=== PATIENT | female | born 1935 | race Caucasian/White ===

== ENCOUNTER 2023-06-02 12:38 | Inpatient (IN) ==
[2023-06-02] MEDS ORDERED: IOPAMIDOL 100 ML BOTTLE IV ONE (12:39)
[2023-06-02 13:15] LABS: POC Calcium, Ionized 1.12 (1.16-1.32); POC Creatinine 0.6 (0.6-1.2); POC Potassium 4.2 (3.3-5.1)
[2023-06-02 13:48] LABS: Basophils # (Auto) 0.03 K/mcL (0.00-0.30); Basophils % (Auto) 0.2 % (0.0-2.0); Eosinophils # (Auto) 0.05 K/mcL (0.00-0.70); Eosinophils % (Auto) 0.3 % (0.0-7.0); Hematocrit 35.3 % (34.1-44.9); Hemoglobin 11.4 g/dL (11.2-15.7); Lymphocytes # (Auto) 1.48 K/mcL (1.50-4.80); Lymphocytes % (Auto) 9.8 % (15.5-49.0); Mean Cell Volume 91.5 fL (80.0-100.0); Mean Corpuscular HGB Conc 32.3 g/dL (31.0-36.0); Mean Platelet Volume 9.3 fL (8.8-12.5); Monocytes # (Auto) 1.01 K/mcL (0.10-0.90); Monocytes % (Auto) 6.7 % (1.0-12.0); Neutrophils % (Auto) 81.7 % (38.0-78.0); Platelet Count 603 K/mcL (140-440); RBC 3.86 M/mcL (3.59-5.38); Red Cell Distribution Width 15.3 % (11.5-14.5); WBC 15.1 K/mcL (4.5-11.0)
[2023-06-02] MEDS ORDERED: CIPROFLOXACIN 400 MG/200 ML BAG IV ONE (14:17)
[2023-06-02 14:26] LABS: ALT/SGPT 25 U/L (<40); AST/SGOT 26 U/L (<32); Albumin 2.5 gm/dL (3.2-5.2); Alkaline Phosphatase 196 U/L (39-117); Bilirubin,Direct < 0.2 mg/dL (0-0.3); Bilirubin,Total 0.5 mg/dL (0.1-1.0)
[2023-06-02 17:22] LABS: Appearance,Urine CLOUDY (Clear); Bilirubin,Urine Negative (Negative); Color,Urine YELLOW; Culture Indicated,Urine Yes; Glucose,Urine (UA) Negative (Negative); Ketones,Urine Negative (Negative); Leukocyte Esterase,Urine 500 /uL (Negative); Mucus,Urine FEW /hpf; Nitrate,Urine POS (Negative); Protein,Urine 30 mg/dL (Negative); Specific Gravity,Urine 1.017 (1.000-1.035); Urine Blood 0.03 mg/dL (Negative); Urine RBC 30 /hpf (0-3); Urine Squamous Epithelial Cell 0 /hpf (0-4); Urine WBC > 182 /hpf (0-4); Urobilinogen,Urine Negative
[2023-06-02] MEDS ORDERED: ONDANSETRON 4 MG/2 ML VIAL IV PRN ×2 (19:46→20:59)
[2023-06-02] MEDS ORDERED: IPRATROPIUM/ALBUTEROL 3 ML AMPUL.NEB NEB PRN (20:59)
[2023-06-02] MEDS ORDERED: LACTULOSE 20 GM/30 ML ORAL.SOL PO PRN (20:59)
[2023-06-02] MEDS ORDERED: POTASSIUM CHLORIDE 20 MEQ TABLET PO PRN ×2 (20:59)
[2023-06-02] MEDS ORDERED: POTASSIUM CHLORIDE 40 MEQ in DEXTROSE 5% IN WATER 500 ML IV PRN (20:59)
[2023-06-02] MEDS ORDERED: MAGNESIUM SULFATE 2 GM/50 ML BAG IV PRN (20:59)
[2023-06-02] MEDS ORDERED: SENNOSIDES 1 TABLET PO PRN (20:59)
[2023-06-02] MEDS ORDERED: OSELTAMIVIR PHOSPHATE 75 MG CAPSULE PO SCH (21:00)
[2023-06-02] MEDS ORDERED: DOCUSATE SODIUM 100 MG CAPSULE PO SCH (21:00)
[2023-06-02] MEDS ORDERED: 0.9 % SODIUM CHLORIDE 1,000 ML IV SCH (21:00)
[2023-06-02 21:47] LABS: Thyroid Stimulating Hormone 4.51 uIU/mL (0.27-5.01)
[2023-06-02] MEDS ORDERED: 0.9 % SODIUM CHLORIDE 10 ML SYRINGE IV SCH (22:00)
[2023-06-02] MEDS: 0.9 % SODIUM CHLORIDE 10 ML SYRINGE IV SCH (22:17)
[2023-06-02] MEDS: ACETAMINOPHEN 325 MG TABLET PO PRN (22:44)
[2023-06-02] MEDS: SENNOSIDES 1 TABLET PO SCH (22:44)
[2023-06-02] MEDS: DOCUSATE SODIUM 100 MG CAPSULE PO SCH (22:44)
[2023-06-02] MEDS: LEVOFLOXACIN 750 MG/150 ML BAG IV SCH (23:07)
[2023-06-03] MEDS: 0.9 % SODIUM CHLORIDE 10 ML SYRINGE IV SCH ×3 (04:23→20:18)
[2023-06-03] MEDS: ACETAMINOPHEN 325 MG TABLET PO PRN ×3 (04:47→23:19)
[2023-06-03] MEDS: POLYETHYLENE GLYCOL 3350 17 GM PACKET PO PRN (04:48)
[2023-06-03 06:46] LABS: Basophils # (Auto) 0.03 K/mcL (0.00-0.30); Basophils % (Auto) 0.2 % (0.0-2.0); Eosinophils # (Auto) 0.04 K/mcL (0.00-0.70); Eosinophils % (Auto) 0.3 % (0.0-7.0); Hematocrit 32.9 % (34.1-44.9); Hemoglobin 10.5 g/dL (11.2-15.7); Lymphocytes # (Auto) 1.21 K/mcL (1.50-4.80); Mean Cell Volume 90.9 fL (80.0-100.0); Mean Corpuscular HGB Conc 31.9 g/dL (31.0-36.0); Mean Platelet Volume 9.3 fL (8.8-12.5); Monocytes # (Auto) 0.86 K/mcL (0.10-0.90); Monocytes % (Auto) 5.7 % (1.0-12.0); Neutrophils % (Auto) 84.4 % (38.0-78.0); Platelet Count 555 K/mcL (140-440); RBC 3.62 M/mcL (3.59-5.38); Red Cell Distribution Width 15.2 % (11.5-14.5); WBC 15.2 K/mcL (4.5-11.0)
[2023-06-03 07:47] LABS: ALT/SGPT 17 U/L (<40); AST/SGOT 14 U/L (<32); Albumin 2.1 gm/dL (3.2-5.2); Albumin/Globulin Ratio 0.6 (1.0-2.3); Alkaline Phosphatase 157 U/L (39-117); Bilirubin,Direct < 0.2 mg/dL (0-0.3); Bilirubin,Total 0.4 mg/dL (0.1-1.0); Blood Urea Nitrogen 12 mg/dL (8-23); Calcium 8.2 mg/dL (8.6-10.4); Carbon Dioxide 21 mmol/L (22-30); Chloride 100 mmol/L (96-108); Globulin 3.6 gm/dL (2.2-3.7); Glomerular Filtration Rate 82; Glucose 93 mg/dL (70-105); Lactate Dehydrogenase 147 U/L (135-225); Phosphorous 2.7 mg/dL (2.5-4.5); Triglycerides 69 mg/dL (<150); Uric Acid 3.1 mg/dL (2.5-8.0)
[2023-06-03] MEDS ORDERED: LEVOTHYROXINE SODIUM 175 MCG TABLET PO SCH (09:00)
[2023-06-03] MEDS ORDERED: SENNOSIDES 1 TABLET PO SCH (09:00)
[2023-06-03 09:49] LABS: Anisocytosis 1+ (None Seen); Lymphocytes % 11 % (15-49); Monocytes % (Manual) 4 % (1-12); Platelet Estimate INCREASED (Normal); RBC Morphology ABNORMAL (Normal); Reactive Lymphocytes 2 % (0-2); Segmented Neutrophils % 83 % (38-78)
[2023-06-03] MEDS: LEVOTHYROXINE 75 MCG TABLET PO SCH (10:25)
[2023-06-03] MEDS: LEVOTHYROXINE 100 MCG TABLET PO SCH (10:25)
[2023-06-03] MEDS: DOCUSATE SODIUM 100 MG CAPSULE PO SCH ×2 (10:25→20:18)
[2023-06-03] MEDS: POLYETHYLENE GLYCOL 3350 17 GM PACKET PO SCH (10:26)
[2023-06-03] MEDS: SODIUM CHLORIDE 1 GM TABLET PO SCH ×3 (10:26→20:18)
[2023-06-03] MEDS: LEVOFLOXACIN 750 MG/150 ML BAG IV SCH (10:31)
[2023-06-03] MEDS: ENOXAPARIN 40 MG/0.4 ML SYRINGE SQ SCH (10:31)
[2023-06-03] MEDS: SENNOSIDES 1 TABLET PO SCH (20:18)
[2023-06-04] MEDS: 0.9 % SODIUM CHLORIDE 10 ML SYRINGE IV SCH ×3 (04:41→21:12)
[2023-06-04] MEDS: POLYETHYLENE GLYCOL 3350 17 GM PACKET PO PRN (05:24)
[2023-06-04] MEDS: ACETAMINOPHEN 325 MG TABLET PO PRN ×2 (05:24→13:34)
[2023-06-04 07:29] LABS: Basophils # (Auto) 0.03 K/mcL (0.00-0.30); Basophils % (Auto) 0.2 % (0.0-2.0); Eosinophils # (Auto) 0.06 K/mcL (0.00-0.70); Eosinophils % (Auto) 0.4 % (0.0-7.0); Hematocrit 33.2 % (34.1-44.9); Hemoglobin 10.9 g/dL (11.2-15.7); Lymphocytes # (Auto) 1.48 K/mcL (1.50-4.80); Lymphocytes % (Auto) 10.4 % (15.5-49.0); Mean Cell Volume 88.5 fL (80.0-100.0); Mean Corpuscular HGB Conc 32.8 g/dL (31.0-36.0); Mean Platelet Volume 9.6 fL (8.8-12.5); Monocytes # (Auto) 0.83 K/mcL (0.10-0.90); Monocytes % (Auto) 5.8 % (1.0-12.0); Neutrophils % (Auto) 81.7 % (38.0-78.0); Platelet Count 602 K/mcL (140-440); RBC 3.75 M/mcL (3.59-5.38); Red Cell Distribution Width 15.1 % (11.5-14.5); WBC 14.3 K/mcL (4.5-11.0)
[2023-06-04] MEDS: LEVOTHYROXINE 75 MCG TABLET PO SCH (07:49)
[2023-06-04] MEDS: DOCUSATE SODIUM 100 MG CAPSULE PO SCH ×2 (07:49→21:12)
[2023-06-04] MEDS: LEVOTHYROXINE 100 MCG TABLET PO SCH (07:49)
[2023-06-04 07:50] LABS: ALT/SGPT 23 U/L (<40); AST/SGOT 28 U/L (<32); Albumin 2.1 gm/dL (3.2-5.2); Albumin/Globulin Ratio 0.6 (1.0-2.3); Alkaline Phosphatase 179 U/L (39-117); Bilirubin,Direct < 0.2 mg/dL (0-0.3); Bilirubin,Total 0.4 mg/dL (0.1-1.0); Blood Urea Nitrogen 9 mg/dL (8-23); Calcium 8.2 mg/dL (8.6-10.4); Carbon Dioxide 20 mmol/L (22-30); Chloride 100 mmol/L (96-108); Globulin 3.8 gm/dL (2.2-3.7); Glomerular Filtration Rate 82; Glucose 92 mg/dL (70-105); Lactate Dehydrogenase 163 U/L (135-225); Phosphorous 2.5 mg/dL (2.5-4.5); Triglycerides 71 mg/dL (<150); Uric Acid 2.9 mg/dL (2.5-8.0)
[2023-06-04] MEDS: POLYETHYLENE GLYCOL 3350 17 GM PACKET PO SCH (07:50)
[2023-06-04] MEDS: ENOXAPARIN 40 MG/0.4 ML SYRINGE SQ SCH (07:50)
[2023-06-04] MEDS ORDERED: SODIUM BICARBONATE 650 MG TABLET PO SCH (08:15)
[2023-06-04] MEDS: LEVOFLOXACIN 750 MG/150 ML BAG IV SCH (09:06)
[2023-06-04] MEDS: CARBOXYMETHYLCELLULOSE SODIUM 1 EACH DROPER.GEL OP PRN (13:29)
[2023-06-04] MEDS: SENNOSIDES 1 TABLET PO SCH (21:12)
[2023-06-05] MEDS: 0.9 % SODIUM CHLORIDE 10 ML SYRINGE IV SCH ×3 (05:02→20:49)
[2023-06-05 06:53] LABS: Basophils # (Auto) 0.04 K/mcL (0.00-0.30); Basophils % (Auto) 0.3 % (0.0-2.0); Eosinophils # (Auto) 0.01 K/mcL (0.00-0.70); Eosinophils % (Auto) 0.1 % (0.0-7.0); Hemoglobin 10.4 g/dL (11.2-15.7); Lymphocytes # (Auto) 1.55 K/mcL (1.50-4.80); Lymphocytes % (Auto) 11.4 % (15.5-49.0); Mean Cell Volume 89.4 fL (80.0-100.0); Mean Corpuscular HGB Conc 32.5 g/dL (31.0-36.0); Mean Platelet Volume 9.5 fL (8.8-12.5); Monocytes # (Auto) 0.82 K/mcL (0.10-0.90); Monocytes % (Auto) 6.1 % (1.0-12.0); Neutrophils % (Auto) 80.5 % (38.0-78.0); Platelet Count 594 K/mcL (140-440); RBC 3.58 M/mcL (3.59-5.38); Red Cell Distribution Width 15.4 % (11.5-14.5); WBC 13.5 K/mcL (4.5-11.0)
[2023-06-05 07:15] LABS: ALT/SGPT 18 U/L (<40); AST/SGOT 21 U/L (<32); Albumin 2.2 gm/dL (3.2-5.2); Albumin/Globulin Ratio 0.6 (1.0-2.3); Alkaline Phosphatase 199 U/L (39-117); Bilirubin,Direct < 0.2 mg/dL (0-0.3); Bilirubin,Total 0.5 mg/dL (0.1-1.0); Blood Urea Nitrogen 13 mg/dL (8-23); Calcium 8.3 mg/dL (8.6-10.4); Carbon Dioxide 21 mmol/L (22-30); Chloride 103 mmol/L (96-108); Globulin 3.5 gm/dL (2.2-3.7); Glomerular Filtration Rate 78; Glucose 107 mg/dL (70-105); Lactate Dehydrogenase 142 U/L (135-225); Phosphorous 2.3 mg/dL (2.5-4.5); Triglycerides 79 mg/dL (<150); Uric Acid 3.3 mg/dL (2.5-8.0)
[2023-06-05] MEDS: CARBOXYMETHYLCELLULOSE SODIUM 1 EACH DROPER.GEL OP PRN (07:37)
[2023-06-05] MEDS: ACETAMINOPHEN 325 MG TABLET PO PRN ×2 (07:38→20:55)
[2023-06-05] MEDS: LEVOTHYROXINE 75 MCG TABLET PO SCH (07:38)
[2023-06-05] MEDS: LEVOTHYROXINE 100 MCG TABLET PO SCH (07:38)
[2023-06-05] MEDS: LEVOFLOXACIN 750 MG/150 ML BAG IV SCH (09:52)
[2023-06-05] MEDS: DOCUSATE SODIUM 100 MG CAPSULE PO SCH ×2 (09:52→20:53)
[2023-06-05] MEDS: ENOXAPARIN 40 MG/0.4 ML SYRINGE SQ SCH (09:52)
[2023-06-05] MEDS: POLYETHYLENE GLYCOL 3350 17 GM PACKET PO SCH (09:53)
[2023-06-05] MEDS: ERYTHROMYCIN OPHTH OINT 3.5GM TUBE OS SCH ×4 (11:30→20:53)
[2023-06-05] MEDS: SENNOSIDES 1 TABLET PO SCH (20:53)
[2023-06-06] MEDS: 0.9 % SODIUM CHLORIDE 10 ML SYRINGE IV SCH ×3 (05:30→20:29)
[2023-06-06] MEDS: ACETAMINOPHEN 325 MG TABLET PO PRN ×3 (05:30→20:28)
[2023-06-06] MEDS: LEVOTHYROXINE 100 MCG TABLET PO SCH (07:52)
[2023-06-06] MEDS: LEVOTHYROXINE 75 MCG TABLET PO SCH (07:52)
[2023-06-06] MEDS: DOCUSATE SODIUM 100 MG CAPSULE PO SCH ×2 (10:09→20:28)
[2023-06-06] MEDS: ENOXAPARIN 40 MG/0.4 ML SYRINGE SQ SCH (10:09)
[2023-06-06] MEDS: ERYTHROMYCIN OPHTH OINT 3.5GM TUBE OS SCH ×4 (10:09→20:28)
[2023-06-06] MEDS: POLYETHYLENE GLYCOL 3350 17 GM PACKET PO SCH (10:09)
[2023-06-06] MEDS: LEVOFLOXACIN 750 MG/150 ML BAG IV SCH (10:10)
[2023-06-06 11:35] LABS: Basophils # (Auto) 0.05 K/mcL (0.00-0.30); Basophils % (Auto) 0.4 % (0.0-2.0); Eosinophils # (Auto) 0.04 K/mcL (0.00-0.70); Eosinophils % (Auto) 0.3 % (0.0-7.0); Hematocrit 32.5 % (34.1-44.9); Hemoglobin 10.6 g/dL (11.2-15.7); Lymphocytes # (Auto) 1.22 K/mcL (1.50-4.80); Lymphocytes % (Auto) 9.6 % (15.5-49.0); Mean Cell Volume 89.5 fL (80.0-100.0); Mean Corpuscular HGB Conc 32.6 g/dL (31.0-36.0); Mean Platelet Volume 9.4 fL (8.8-12.5); Monocytes # (Auto) 0.77 K/mcL (0.10-0.90); Neutrophils % (Auto) 81.7 % (38.0-78.0); Platelet Count 555 K/mcL (140-440); RBC 3.63 M/mcL (3.59-5.38); Red Cell Distribution Width 15.5 % (11.5-14.5); WBC 12.8 K/mcL (4.5-11.0)
[2023-06-06 12:17] LABS: Blood Urea Nitrogen 12 mg/dL (8-23); Calcium 8.3 mg/dL (8.6-10.4); Carbon Dioxide 23 mmol/L (22-30); Chloride 102 mmol/L (96-108); Glomerular Filtration Rate 78; Glucose 158 mg/dL (70-105); Phosphorous 2.6 mg/dL (2.5-4.5)
[2023-06-06 14:06] LABS: Appearance,Urine CLEAR (Clear); Bilirubin,Urine Negative (Negative); Color,Urine YELLOW; Culture Indicated,Urine Yes; Glucose,Urine (UA) Negative (Negative); Ketones,Urine Negative (Negative); Leukocyte Esterase,Urine Negative /uL (Negative); Mucus,Urine FEW /hpf; Nitrate,Urine Negative (Negative); Protein,Urine Negative (Negative); Specific Gravity,Urine 1.011 (1.000-1.035); Urine Blood Negative (Negative); Urine RBC 9 /hpf (0-3); Urine Squamous Epithelial Cell 0 /hpf (0-4); Urine WBC 19 /hpf (0-4); Urobilinogen,Urine Negative
[2023-06-06] MEDS: SENNOSIDES 1 TABLET PO SCH (20:28)
[2023-06-07] MEDS: ACETAMINOPHEN 325 MG TABLET PO PRN (03:32)
[2023-06-07] MEDS: 0.9 % SODIUM CHLORIDE 10 ML SYRINGE IV SCH (05:29)
[2023-06-07] MEDS: LEVOTHYROXINE 75 MCG TABLET PO SCH (08:03)
[2023-06-07] MEDS: LEVOTHYROXINE 100 MCG TABLET PO SCH (08:03)
[2023-06-07] MEDS: POLYETHYLENE GLYCOL 3350 17 GM PACKET PO SCH (08:24)
[2023-06-07] MEDS: DOCUSATE SODIUM 100 MG CAPSULE PO SCH (08:24)
[2023-06-07] MEDS: ENOXAPARIN 40 MG/0.4 ML SYRINGE SQ SCH (08:24)
[2023-06-07] MEDS: ERYTHROMYCIN OPHTH OINT 3.5GM TUBE OS SCH (08:31)
== END 2023-06-07 12:42 ==
LOC: MEDSUR 12:38 → ED 12:38 → MEDSUR 21:13
PROVIDERS: ADMIT Internal Medicine; ATTEND Internal Medicine

== ENCOUNTER 2023-07-03 09:20 | Inpatient (IN) ==
[2023-07-03] MEDS ORDERED: 0.9 % SODIUM CHLORIDE 1,000 ML IV SCH ×2 (09:30→15:53)
[2023-07-03] MEDS ORDERED: cefTRIAXone 1 GM VIAL IV ONE (09:46)
[2023-07-03 10:23] LABS: Basophils # (Auto) 0 K/mcL (0.00-0.30); Basophils % (Auto) 0 % (0.0-2.0); Eosinophils # (Auto) 0.01 K/mcL (0.00-0.70); Eosinophils % (Auto) 0.1 % (0.0-7.0); Hematocrit 37.1 % (34.1-44.9); Hemoglobin 11.7 g/dL (11.2-15.7); Lymphocytes # (Auto) 2.26 K/mcL (1.50-4.80); Lymphocytes % (Auto) 12.9 % (15.5-49.0); Mean Corpuscular HGB Conc 31.5 g/dL (31.0-36.0); Mean Platelet Volume 9.9 fL (8.8-12.5); Monocytes # (Auto) 0.97 K/mcL (0.10-0.90); Monocytes % (Auto) 5.5 % (1.0-12.0); Neutrophils % (Auto) 80.5 % (38.0-78.0); Platelet Count 524 K/mcL (140-440); RBC 4.12 M/mcL (3.59-5.38); Red Cell Distribution Width 15.7 % (11.5-14.5); WBC 17.6 K/mcL (4.5-11.0)
[2023-07-03 10:34] LABS: Appearance,Urine Cloudy (Clear); Bacteria,Urine Many /hpf ({null, 0}); Bilirubin,Urine Negative (Negative); Calcium Oxalate Crystals,Urine Few /hpf; Color,Urine Yellow; Culture Indicated,Urine Yes; Glucose,Urine (UA) Negative (Negative); Ketones,Urine Negative (Negative); Leukocyte Esterase,Urine Large /uL (Negative); Mucus,Urine Few /hpf; Nitrate,Urine Positive (Negative); PH,Urine 6.5 (5.0-9.0); Protein,Urine 30 mg/dL (Negative); Specific Gravity,Urine 1.015 (1.000-1.035); Urine Blood 1+(SmallL) ery/mcL (Negative); Urine RBC 3 /hpf (0-3); Urine Squamous Epithelial Cell 3 /hpf (0-4); Urine Transitional Epi Cells 3 /hpf (0-2); Urine WBC > 182 /hpf (0-4)
[2023-07-03 10:59] LABS: ALT/SGPT 42 U/L (<40); AST/SGOT 56 U/L (<32); Albumin 2.5 gm/dL (3.2-5.2); Albumin/Globulin Ratio 0.5 (1.0-2.3); Alkaline Phosphatase 578 U/L (39-117); Bilirubin,Total 1.1 mg/dL (0.1-1.0); Blood Urea Nitrogen 19 mg/dL (8-23); Calcium 9.2 mg/dL (8.6-10.4); Carbon Dioxide 34 mmol/L (22-30); Chloride 91 mmol/L (96-108); Globulin 4.7 gm/dL (2.2-3.7); Glomerular Filtration Rate 82; Glucose 107 mg/dL (70-105)
[2023-07-03] MEDS ORDERED: POTASSIUM CHLORIDE 20 MEQ in DEXTROSE 5% IN WATER 250 ML IV ONE (11:29)
[2023-07-03] MEDS ORDERED: POTASSIUM CHLORIDE 40 MEQ in DEXTROSE 5% IN WATER 500 ML IV ONE (15:53)
[2023-07-03] MEDS ORDERED: IPRATROPIUM/ALBUTEROL 3 ML AMPUL.NEB NEB PRN (15:53)
[2023-07-03] MEDS ORDERED: POTASSIUM CHLORIDE 20 MEQ TABLET PO PRN ×2 (15:53)
[2023-07-03] MEDS ORDERED: POTASSIUM CHLORIDE 20 MEQ TABLET PO ONE (15:53)
[2023-07-03] MEDS ORDERED: SENNOSIDES 1 TABLET PO PRN (15:53)
[2023-07-03] MEDS ORDERED: POLYETHYLENE GLYCOL 3350 17 GM PACKET PO PRN (15:53)
[2023-07-03] MEDS ORDERED: MAGNESIUM SULFATE 2 GM/50 ML BAG IV PRN (15:53)
[2023-07-03] MEDS ORDERED: ONDANSETRON 4 MG/2 ML VIAL IV PRN (15:53)
[2023-07-03] MEDS ORDERED: POTASSIUM CHLORIDE 40 MEQ in DEXTROSE 5% IN WATER 500 ML IV PRN (15:53)
[2023-07-03] MEDS: LEVOFLOXACIN 750 MG/150 ML BAG IV SCH (17:22)
[2023-07-03] MEDS: 0.9 % SODIUM CHLORIDE 10 ML SYRINGE IV SCH (19:10)
[2023-07-03] MEDS: DOCUSATE SODIUM 100 MG CAPSULE PO SCH (20:12)
[2023-07-03] MEDS: prednisoLONE 1% OPHTH DROPS 1ML BOTTLE OD SCH ×2 (20:13→21:04)
[2023-07-03] MEDS: ACETAMINOPHEN 325 MG TABLET PO PRN (20:15)
[2023-07-04] MEDS: 0.9 % SODIUM CHLORIDE 10 ML SYRINGE IV SCH ×3 (05:54→20:15)
[2023-07-04 06:23] LABS: Hematocrit 34.7 % (34.1-44.9); Hemoglobin 10.9 g/dL (11.2-15.7); Mean Cell Volume 89.7 fL (80.0-100.0); Mean Corpuscular HGB Conc 31.4 g/dL (31.0-36.0); Platelet Count 519 K/mcL (140-440); RBC 3.87 M/mcL (3.59-5.38); Red Cell Distribution Width 15.5 % (11.5-14.5); WBC 16.5 K/mcL (4.5-11.0)
[2023-07-04 06:59] LABS: ALT/SGPT 100 U/L (<40); AST/SGOT 231 U/L (<32); Albumin 2.1 gm/dL (3.2-5.2); Albumin/Globulin Ratio 0.5 (1.0-2.3); Alkaline Phosphatase 670 U/L (39-117); Bilirubin,Direct 0.4 mg/dL (<0.3); Bilirubin,Total 0.7 mg/dL (0.1-1.0); Blood Urea Nitrogen 15 mg/dL (8-23); Carbon Dioxide 29 mmol/L (22-30); Chloride 99 mmol/L (96-108); Globulin 4.2 gm/dL (2.2-3.7); Glomerular Filtration Rate 87; Glucose 96 mg/dL (70-105); Lactate Dehydrogenase 170 U/L (135-225); Phosphorous 1.8 mg/dL (2.5-4.5); Triglycerides 96 mg/dL (<150); Uric Acid 4.1 mg/dL (2.5-8.0)
[2023-07-04 07:10] LABS: Band Neutrophils % 2 % (0-10); Lymphocytes % 9 % (15-49); Monocytes % (Manual) 7 % (1-12); Platelet Estimate INCREASED (Normal); RBC Morphology NORMAL (Normal); Segmented Neutrophils % 82 % (38-78)
[2023-07-04] MEDS: LEVOTHYROXINE 75 MCG TABLET PO SCH (08:05)
[2023-07-04] MEDS: LEVOTHYROXINE 100 MCG TABLET PO SCH (08:05)
[2023-07-04] MEDS: DOCUSATE SODIUM 100 MG CAPSULE PO SCH ×2 (08:05→20:14)
[2023-07-04] MEDS: ENOXAPARIN 40 MG/0.4 ML SYRINGE SQ SCH (08:05)
[2023-07-04] MEDS: LEVOFLOXACIN 750 MG/150 ML BAG IV SCH (09:55)
[2023-07-04] MEDS: prednisoLONE 1% OPHTH DROPS 1ML BOTTLE OD SCH ×4 (09:56→20:03)
[2023-07-04] MEDS: NEUTRA PHOS 1 PACKET PO SCH ×2 (09:56→20:14)
[2023-07-04] MEDS: CYCLOPENTOLATE 1% LEFT EYE SCH (10:00)
[2023-07-04] MEDS: PHOSPHORUS 250 MG TABLET PO SCH ×2 (10:00→20:14)
[2023-07-04] MEDS: ACETAMINOPHEN 325 MG TABLET PO PRN ×2 (10:07→20:14)
[2023-07-04 10:37] LABS: Hepatitis A Antibody IgM Non-Reactive (Non-Reactive); Hepatitis B Surface Antigen Negative (Negative); Hepatitis C Virus Antibody Non-Reactive (Non-Reactive)
[2023-07-04] MEDS: POLYETHYLENE GLYCOL 3350 17 GM PACKET PO SCH (20:14)
[2023-07-05] MEDS: 0.9 % SODIUM CHLORIDE 10 ML SYRINGE IV SCH ×3 (04:05→20:44)
[2023-07-05 06:06] LABS: Basophils # (Auto) 0.01 K/mcL (0.00-0.30); Basophils % (Auto) 0.1 % (0.0-2.0); Eosinophils # (Auto) 0.03 K/mcL (0.00-0.70); Eosinophils % (Auto) 0.2 % (0.0-7.0); Hematocrit 33.4 % (34.1-44.9); Hemoglobin 10.6 g/dL (11.2-15.7); Lymphocytes # (Auto) 1.59 K/mcL (1.50-4.80); Lymphocytes % (Auto) 9.6 % (15.5-49.0); Mean Cell Volume 89.8 fL (80.0-100.0); Mean Corpuscular HGB Conc 31.7 g/dL (31.0-36.0); Monocytes # (Auto) 0.85 K/mcL (0.10-0.90); Monocytes % (Auto) 5.1 % (1.0-12.0); Neutrophils % (Auto) 83.4 % (38.0-78.0); Platelet Count 522 K/mcL (140-440); RBC 3.72 M/mcL (3.59-5.38); Red Cell Distribution Width 15.8 % (11.5-14.5); WBC 16.5 K/mcL (4.5-11.0)
[2023-07-05 06:21] LABS: ALT/SGPT 64 U/L (<40); AST/SGOT 86 U/L (<32); Albumin/Globulin Ratio 0.5 (1.0-2.3); Alkaline Phosphatase 654 U/L (39-117); Bilirubin,Direct 0.4 mg/dL (<0.3); Bilirubin,Total 0.8 mg/dL (0.1-1.0); Blood Urea Nitrogen 13 mg/dL (8-23); Calcium 8.7 mg/dL (8.6-10.4); Carbon Dioxide 26 mmol/L (22-30); Chloride 100 mmol/L (96-108); Globulin 4.1 gm/dL (2.2-3.7); Glomerular Filtration Rate 87; Glucose 134 mg/dL (70-105); Lactate Dehydrogenase 114 U/L (135-225); Phosphorous 2.8 mg/dL (2.5-4.5); Triglycerides 106 mg/dL (<150)
[2023-07-05] MEDS: prednisoLONE 1% OPHTH DROPS 1ML BOTTLE OD SCH ×4 (08:52→20:45)
[2023-07-05] MEDS: ENOXAPARIN 40 MG/0.4 ML SYRINGE SQ SCH (08:52)
[2023-07-05] MEDS: SENNOSIDES 1 TABLET PO SCH (08:53)
[2023-07-05] MEDS: LEVOTHYROXINE 75 MCG TABLET PO SCH (08:53)
[2023-07-05] MEDS: LEVOTHYROXINE 100 MCG TABLET PO SCH (08:53)
[2023-07-05] MEDS: DOCUSATE SODIUM 100 MG CAPSULE PO SCH ×2 (08:53→20:45)
[2023-07-05] MEDS: POLYETHYLENE GLYCOL 3350 17 GM PACKET PO SCH ×3 (08:54→20:53)
[2023-07-05] MEDS: LEVOFLOXACIN 750 MG/150 ML BAG IV SCH (09:10)
[2023-07-05] MEDS: CYCLOPENTOLATE 1% LEFT EYE SCH (09:10)
[2023-07-05] MEDS: ACETAMINOPHEN 325 MG TABLET PO PRN ×2 (16:25→23:30)
[2023-07-06] MEDS: 0.9 % SODIUM CHLORIDE 10 ML SYRINGE IV SCH ×3 (05:20→21:23)
[2023-07-06 06:27] LABS: ALT/SGPT 34 U/L (<40); AST/SGOT 29 U/L (<32); Albumin 1.9 gm/dL (3.2-5.2); Albumin/Globulin Ratio 0.5 (1.0-2.3); Alkaline Phosphatase 505 U/L (39-117); Bilirubin,Direct 0.3 mg/dL (<0.3); Bilirubin,Total 0.6 mg/dL (0.1-1.0); Blood Urea Nitrogen 14 mg/dL (8-23); Calcium 8.8 mg/dL (8.6-10.4); Carbon Dioxide 27 mmol/L (22-30); Chloride 100 mmol/L (96-108); Globulin 3.7 gm/dL (2.2-3.7); Glomerular Filtration Rate 82; Glucose 118 mg/dL (70-105); Lactate Dehydrogenase 102 U/L (135-225); Phosphorous 2.9 mg/dL (2.5-4.5); Triglycerides 92 mg/dL (<150); Uric Acid 3.1 mg/dL (2.5-8.0)
[2023-07-06] MEDS: ENOXAPARIN 40 MG/0.4 ML SYRINGE SQ SCH (08:58)
[2023-07-06] MEDS: prednisoLONE 1% OPHTH DROPS 1ML BOTTLE OD SCH ×4 (08:58→21:23)
[2023-07-06] MEDS: DOCUSATE SODIUM 100 MG CAPSULE PO SCH ×2 (08:58→21:24)
[2023-07-06] MEDS: SENNOSIDES 1 TABLET PO SCH (08:58)
[2023-07-06] MEDS: LEVOTHYROXINE 75 MCG TABLET PO SCH (08:58)
[2023-07-06] MEDS: LEVOFLOXACIN 750 MG/150 ML BAG IV SCH (08:58)
[2023-07-06] MEDS: POLYETHYLENE GLYCOL 3350 17 GM PACKET PO SCH ×2 (08:58→21:23)
[2023-07-06] MEDS: LEVOTHYROXINE 100 MCG TABLET PO SCH (08:58)
[2023-07-06] MEDS: CYCLOPENTOLATE 1% LEFT EYE SCH (08:59)
[2023-07-06 10:46] LABS: Prealbumin 7.5 mg/dL (20.0-40.0)
[2023-07-07] MEDS: 0.9 % SODIUM CHLORIDE 10 ML SYRINGE IV SCH ×2 (04:54→13:18)
[2023-07-07] MEDS: LEVOFLOXACIN 750 MG/150 ML BAG IV SCH (08:55)
[2023-07-07] MEDS: POLYETHYLENE GLYCOL 3350 17 GM PACKET PO SCH (08:55)
[2023-07-07] MEDS: ENOXAPARIN 40 MG/0.4 ML SYRINGE SQ SCH (08:55)
[2023-07-07] MEDS: prednisoLONE 1% OPHTH DROPS 1ML BOTTLE OD SCH ×2 (08:56→13:18)
[2023-07-07] MEDS: LEVOTHYROXINE 75 MCG TABLET PO SCH (08:56)
[2023-07-07] MEDS: CYCLOPENTOLATE 1% LEFT EYE SCH (08:56)
[2023-07-07] MEDS: DOCUSATE SODIUM 100 MG CAPSULE PO SCH (08:56)
[2023-07-07] MEDS: SENNOSIDES 1 TABLET PO SCH (08:56)
[2023-07-07] MEDS: LEVOTHYROXINE 100 MCG TABLET PO SCH (08:56)
== END 2023-07-07 15:50 | DRG 689 ==
LOC: ED 09:20 → MEDSUR 15:27
PROVIDERS: ADMIT Internal Medicine; ATTEND Internal Medicine